=== PATIENT | female | born 2000 | race Two or more races ===

== ENCOUNTER 2021-09-13 16:58 | Emergency (ER) | payer MEDICAID ==
[~2021-09-13] VITALS: Ht 165.1 cm; Wt 63.5 kg
[2021-09-13 16:55] VITALS: BP 140/76
[2021-09-13 18:19] LABS: Urine Bacteria NONE SEEN /hpf (None Seen); Urine Blood 3+ /uL (Negative); Urine Specific Gravity 1.008 (1.001-1.035); Urine WBC 4 /hpf (0 - 5)
[2021-09-13 19:00] LABS: Hemoglobin 12.1 g/dL (12.2-16.2)
[2021-09-13 19:01] LABS: Basophils # (auto) 0.1 10 ^3/uL (0-0.2); Basophils % (auto) 0.7 % (0.0-2.0); Eosinophils # (auto) 0.2 10 ^3/uL (0-0.8); Eosinophils % (auto) 2.4 % (0.0-7.0); Hematocrit 36.9 % (36.0-46.0); Lymphocytes # (auto) 1.9 10 ^3/uL (0.4-5.4); Lymphocytes % (auto) 26.2 % (10.0-50.0); Mean Corpuscular Hemoglobin 24.7 pg (28.0-32.0); Mean Corpuscular Hgb Conc. 32.8 g/dL (32.0-36.0); Mean Corpuscular Volume 75.4 fL (80.0-100.0); Monocytes # (auto) 0.6 10 ^3/uL (0-1.3); Monocytes % (auto) 7.9 % (0.0-12.0); Neutrophils # (auto) 4.5 10 ^3/uL (1.6-8.6); Neutrophils % (auto) 62.8 % (37.0-80.0); Nucleated Red Blood Cells % 0.2 %; Red Blood Cells 4.89 10^6/uL (4.0-5.20); Red Cell Distribution Width 14.9 % (11.8-14.3); White Blood Cell 7.2 10^3/uL (4.4-10.8)
[2021-09-13 20:17] LABS: Calcium 9.2 mg/dL (8.5-10.1); Potassium 3.9 mmol/L (3.5-5.1)
[2021-09-13 20:21] LABS: BUN/Creatinine Ratio 16.1; Bilirubin, Total 0.2 mg/dL (0.2-1.0); Total Protein 7.6 g/dL (6.4-8.2)
== END 2021-09-13 23:58 | disposition left against medical advice (07) ==
LOC: ER 16:58
DX: O20.8 Other hemorrhage in early pregnancy (principal); Z3A.01 Less than 8 weeks gestation of pregnancy; Z53.21 Procedure and treatment not carried out due to patient leaving prior to being seen by health care provider
CPT/HCPCS: 36415; 76801; 76817; 80053; 81001; 84702; 85025; 86850; 86900; 86901

== ENCOUNTER 2022-04-18 04:53 | Observation (INO) | payer MEDICAID ==
[~2022-04-18] VITALS: Ht 165.1 cm; Wt 78.0 kg
== END 2022-04-18 06:53 | disposition home or self-care (01) ==
LOC: LDRP 04:53
PROVIDERS: ADMIT Obstetrics & Gynecology; ATTEND Obstetrics & Gynecology
DX: O99.613 Diseases of the digestive system complicating pregnancy, third trimester (principal); K62.89 Other specified diseases of anus and rectum; O26.893 Other specified pregnancy related conditions, third trimester; R10.2 Pelvic and perineal pain; R10.30 Lower abdominal pain, unspecified; Z3A.30 30 weeks gestation of pregnancy; Z91.040 Latex allergy status
CPT/HCPCS: 59025; 81002; G0378

== ENCOUNTER 2022-10-10 08:33 | Emergency (ER) | payer MEDICAID ==
[~2022-10-10] VITALS: Ht 165.1 cm; Wt 67.9 kg
[2022-10-10 08:56] LABS: Basophils # (auto) 0 10 ^3/uL (0-0.2); Eosinophils # (auto) 0.1 10 ^3/uL (0-0.8); Hematocrit 34.9 % (36.0-46.0); Lymphocytes # (auto) 0.3 10 ^3/uL (0.4-5.4); Monocytes # (auto) 0.5 10 ^3/uL (0-1.3)
[2022-10-10 08:58] LABS: Basophils % (auto) 0.3 % (0.0-2.0); Eosinophils % (auto) 0.7 % (0.0-7.0); Hemoglobin 10.6 g/dL (12.2-16.2); Lymphocytes % (auto) 2.7 % (10.0-50.0); Mean Corpuscular Hemoglobin 20.1 pg (28.0-32.0); Mean Corpuscular Hgb Conc. 30.5 g/dL (32.0-36.0); Monocytes % (auto) 4.1 % (0.0-12.0); Neutrophils % (auto) 92.2 % (37.0-80.0); Red Blood Cells 5.29 10^6/uL (4.0-5.20); Red Cell Distribution Width 17.3 % (11.8-14.3); White Blood Cell 11.9 10^3/uL (4.4-10.8)
[2022-10-10 09:15] LABS: Albumin 4.4 g/dL (3.4-5.0); Potassium 3.9 mmol/L (3.5-5.1)
[2022-10-10 09:18] LABS: Bilirubin, Total 0.5 mg/dL (0.2-1.0); Total Protein 7.8 g/dL (6.4-8.2)
[2022-10-10] MEDS ORDERED: SODIUM CHLORIDE 0.9% 1,000 ML IV ONE ×2 (09:45)
[2022-10-10] MEDS ORDERED: ONDANSETRON HCL 4 MG/2 ML VIAL IV ONE ×2 (09:45→14:15)
[2022-10-10] MEDS ORDERED: MORPHINE SULFATE 4 MG/ML SYR/VIAL IV ONE (09:45)
[2022-10-10] MEDS ORDERED: ONDA-144 PO (09:58)
[2022-10-10] MEDS ORDERED: METR500T PO (09:58)
[2022-10-10] MEDS ORDERED: metroNIDAZOLE 500MG/100ML 100 ML IV ONE (10:00)
[2022-10-10] MEDS ORDERED: cefTRIAXone 1GM/50ML D5W 50 ML IV ONE (10:00)
[2022-10-10 10:16] LABS: Urine Bacteria NONE SEEN /hpf (None Seen); Urine Blood 3+ /uL (Negative); Urine Mucus FEW (None Seen); Urine Specific Gravity 1.031 (1.001-1.035); Urine WBC 18 /hpf (0 - 5)
[2022-10-10 13:29] VITALS: BP 116/74
[2022-10-10] MEDS ORDERED: CEPH-510 PO (13:41)
== END 2022-10-10 15:30 | disposition home or self-care (01) ==
LOC: ER 08:33 → EEVIPCON 08:33 → ER 15:26
DX: K52.9 Noninfective gastroenteritis and colitis, unspecified (principal); N39.0 Urinary tract infection, site not specified; K62.89 Other specified diseases of anus and rectum; Z79.899 Other long term (current) drug therapy
CPT/HCPCS: 36415; 74176; 80053; 81001; 81025; 85025; 96365; 96366; 96367; 96375; 96376; 99285; J0696; J2270; J2405; J3490; J7030